=== PATIENT | female | born 1980 ===

== ENCOUNTER 2025-07-25 06:25 | Day surgery (SDC) | payer OTHER, SELFPAY | END 2025-07-25 14:51 | disposition home or self-care (01) | LOC: GI 06:25 | PROVIDERS: ATTENDING PHYSICIAN Internal Medicine Gastroenterology | DX: K62.1 Rectal polyp (principal); Z80.0 Family history of malignant neoplasm of digestive organs | CPT/HCPCS: 45385; 88305 ==